=== PATIENT | male | born 1990 ===

== ENCOUNTER 2017-03-13 17:49 | Emergency (ER) | payer SELFPAY ==
[~2017-03-13] VITALS: Ht 175.3 cm; Wt 86.2 kg
[2017-03-13 17:50] VITALS: BP 149/92; Ht 175.3 cm; Wt 86.2 kg
== END 2017-03-13 20:03 | disposition left against medical advice (07) ==
LOC: ED 17:49
DX: M79.671 Pain in right foot (principal); M79.672 Pain in left foot